=== PATIENT | female | born 1960 | race Caucasian/White ===

== ENCOUNTER 2016-12-09 10:24 | Emergency (ER) | payer BC ==
[~2016-12-09] VITALS: Ht 167.6 cm; Wt 66.4 kg
[2016-12-09] VITALS (9 sets, daily range): BP systolic 119–168; BP diastolic 74–93; PULSE 53–75; TEMP 36.6; O2SAT 94–100; Ht 167.6 cm; Wt 66.4 kg
[~2016-12-09 10:24] MED LIST: ASTN; ESTVR2 VAGRING; GLUC1CAP33 PO; OMEGCAP2 PO
[2016-12-09] MEDS ORDERED: CYAN10005 PO (10:53)
[2016-12-09] MEDS ORDERED: ASPI81TA28 PO (10:53)
[2016-12-09] MEDS ORDERED: CHOL2000 PO (10:53)
[2016-12-09] MEDS ORDERED: ACETAMINOPHEN 500 MG TAB PO STA (11:15)
--- NOTE | 2016-12-09 12:10 | DIAGNOSTIC IMAGING REPORT ---
RIGHT SHOULDER MIN 2 VIEWS ROUTINE CLINICAL HISTORY: Right upper extremity pain following fall. COMPARISON: None FINDINGS: Evaluation of the right shoulder is suboptimal given difficulty positioning. Alignment appears anatomic and no acute fracture is identified. There is moderate AC joint arthrosis. IMPRESSION: No acute fracture or dislocation of the right shoulder. Study mildly compromised due to difficulty positioning. Electronically signed by: Benjamin Hughes M.D. 12/09/2016 12:09 PM Dictated Date/Time: 12/09/2016 12:08 PM
--- NOTE | 2016-12-09 12:17 | DIAGNOSTIC IMAGING REPORT ---
RIGHT FOREARM 2 VIEWS ROUTINE, ELBOW 2 VIEWS, WRIST 2 VIEW, RIGHT HAND MIN 3 VIEWS ROUTINE CLINICAL HISTORY: Fall. Right arm pain. Right hand pain. Right wrist pain. COMPARISON STUDY: Right elbow 09/11/2014. FINDINGS: There is a comminuted fracture within the proximal metadiaphysis of the right ulna which demonstrates mild anterior angulation. The fracture may extend to the articular surface. There is posterior dislocation of the radius or relation to the humerus. There is mild posterior subluxation/dislocation of the ulna and relation to the humerus. There is an associated elbow effusion and mild soft tissue swelling. No fracture or dislocation within the right hand or right wrist. No radiopaque foreign bodies. IMPRESSION: 1. Comminuted fracture within the proximal metadiaphysis of the right ulna which may extend to the articular surface. There is also mild posterior subluxation/dislocation of the ulna in relation to the humerus. 2. Posterior dislocation of the proximal radius in relation to the ulna. 3. Elbow effusion. 4. No acute fracture or dislocation within the right wrist or hand. Electronically signed by: Tree Oreilly M.D. 12/09/2016 12:15 PM Dictated Date/Time: 12/09/2016 12:10 PM
[2016-12-09] MEDS ORDERED: SODIUM CHLORIDE 0.9% 1000ML 1,000 ML IV STA (12:52)
[2016-12-09] MEDS ORDERED: ONDANSETRON INJ 2 MG/ML 2 ML VIAL IV STA (12:52)
[2016-12-09] MEDS ORDERED: MoRPHine SULFATE 4 MG/ML 1 ML CARP\\VIAL IV STA ×2 (12:52→17:21)
[2016-12-09] MEDS ORDERED: LIDOCAINE HCL 1% 20 ML VIAL ONE (14:53)
[2016-12-09] MEDS ORDERED: PROPOFOL IV EMULSION 10 MG/ML 20 ML VIAL IV ONE (15:27)
[2016-12-09] MEDS ORDERED: KETAMINE HCL INJ 50 MG/ML 10 ML VIAL ONE (15:27)
--- NOTE | 2016-12-09 15:45 | EMERGENCY ROOM VISIT NOTE ---
ED Visit Note First contact with patient: 15:42 Conscious sedation note: Reason: Elbow fracture dislocation reduction. Total time: 21 minutes Medications used: 25 mg of propofol and 25 mg of ketamine. The patient was sedated using above medications with good results. The patient' s reduction was without difficulty or pain. She maintained good pulse ox and carbon dioxide levels as well as normal vital signs during the conscious sedation. Last oral intake was 8 hours ago.
--- NOTE | 2016-12-09 15:47 | EMERGENCY ROOM VISIT NOTE ---
Pre-Mod Sedation Assessment General Date of Moderate Sedation: Dec 09, 2016. Vital Signs: Vital Signs Past 12 Hours Date Time Temp Pulse Resp B/P (MAP) Pulse Ox O2 Delivery O2 Flow Rate FiO2 12/09/16 15:02 53 18 119/74 94 Room Air 12/09/16 14:31 55 15 145/75 97 12/09/16 13:46 52 14 132/72 12/09/16 13:06 54 16 126/73 100 Room Air 12/09/16 12:56 51 12/09/16 12:26 55 15 134/83 97 Room Air 12/09/16 10:27 36.6 59 20 125/71 96 Room Air Review Cardiovascular: regular rate, rhythm Abdomen: normal bowel sounds Lungs: chest non-tender Pre-Sedation Airway Assessment Oral Cavity: WNL Short Thick Neck: No Hx of Sleep Apnea: Yes Smoking Status: Never Smoker Mallampati Classification: Class I Procedure Planning Contraindications-for Mod Sed: None Notes The planned sedation has been discussed with the patient and consent obtained. I have identified the patient, determined the appropriateness of sedation and have assessed the patient immediately prior to the procedure. All medicine(s) and interventions are by my order.
--- NOTE | 2016-12-09 15:48 | EMERGENCY ROOM VISIT NOTE ---
Post-Moderate Sedation Plan General Date of Moderate Sedation Dec 09, 2016. Vital Signs: Vital Signs Past 12 Hours Date Time Temp Pulse Resp B/P (MAP) Pulse Ox O2 Delivery O2 Flow Rate FiO2 12/09/16 15:02 53 18 119/74 94 Room Air 12/09/16 14:31 55 15 145/75 97 12/09/16 13:46 52 14 132/72 12/09/16 13:06 54 16 126/73 100 Room Air 12/09/16 12:56 51 12/09/16 12:26 55 15 134/83 97 Room Air 12/09/16 10:27 36.6 59 20 125/71 96 Room Air Review - Discharge Plan Post Moderate Sedation Plan: On clinical assessment, the patient appears to have tolerated the conscious sedation without complications. Patient is recovering as anticipated. Patient will continue to be monitored by nursing and may be discharged when conscious sedation discharge criteria are met.
[2016-12-09] MEDS ORDERED: KETAMINE HCL INJ 50 MG/ML 10 ML VIAL IV PRN (15:55)
[2016-12-09] MEDS ORDERED: PROPOFOL IV EMULSION 10 MG/ML 20 ML VIAL IV PRN (16:00)
--- NOTE | 2016-12-09 16:05 | DIAGNOSTIC IMAGING REPORT ---
RIGHT ELBOW 2 VIEWS HISTORY: 56 years-old Female right elbow reduction Right COMPARISON: Right elbow radiographs the same day at 11:35 AM TECHNIQUE: Single post reduction lateral view of the right elbow FINDINGS: There has been interval casting and reduction of the previously noted angulated comminuted mildly displaced proximal ulnar fracture.. There is improved alignment status post reduction. The articular head of the radius now appears to be in anatomic position on this single view. There remains a 3.0 x 0.7 cm bone fragment volar to the proximal. Moderate joint effusion. Fine bony detail is obscured by cast. IMPRESSION: 1. Improved alignment of the comminuted proximal ulnar fracture status post reduction and casting. There remains a 3.0 x 0.7 cm bone fragment adjacent to the volar aspect of the proximal ulna. 2. Satisfactory alignment of the radial head in relation to the capitellum on this single view. The above report was generated using voice recognition software. It may contain grammatical, syntax or spelling errors. Electronically signed by: Sunny Vences M.D. 12/09/2016 4:04 PM Dictated Date/Time: 12/09/2016 4:02 PM
[2016-12-09] MEDS ORDERED: HYDR-5688 PO (16:25)
[2016-12-09] MEDS ORDERED: ONDA4TAB46 PO (16:25)
--- NOTE | 2016-12-09 16:45 | OPERATIVE REPORT ---
DATE OF OPERATION: 12/09/2016 PROCEDURE AND CONSULT NOTE CHIEF COMPLAINT: Right elbow pain and injury. Maye is a delightful young lady. She is 56 years of age. She suffered a fall on outstretched right upper extremity earlier today, the 09 of December. She suffered a [place] injury to her right elbow, essentially a fracture of the proximal ulna and a dislocation of the right radial head. On examination, she had some numbness and tingling, significant pain. No laceration. No breakage of skin. Neurologically intact. Mild swelling. X-rays demonstrated a [place] lesion of the right elbow, which is the comminuted fracture of metaphyseal area of the right ulna plus a subluxation and dislocation of the radial head. DISPOSITION: Includes, 1. A conscious sedation in the Emergency Room ____ by Dr. Rosas. 2. We performed a closed reduction with flexion, supination and slight traction. Placed her in a posterior splint for support. Ice, rest, and elevation. We will see her back in the office in approximately 4-5 days. [place] can be offered for pain. She should maintain her splint. Instructions and precautions provided. I attest to the content of the Intraoperative Record and any orders documented therein. Any exception s are noted below.
[2016-12-09] MEDS ORDERED: ONDANSETRON HOME PACK 4MG OD TAB PO ONE (17:00)
[2016-12-09] MEDS ORDERED: NORCO 5/325MG HOME PACK PO ONE (17:00)
--- NOTE | 2016-12-10 12:32 | EMERGENCY ROOM VISIT NOTE ---
ED Visit Note First contact with patient: 10:59 Chief Complaint: I fell and hurt my right arm. History of Present Illness: Ms. Amaya is a 56-year-old white female who is brought into the ED via ambulance complaining of right upper extremity pain. Patient reports less than an hour ago she was walking on the sidewalk, tripped and fell on her extended right arm. She reports she immediately had pain in the right elbow and proximal forearm. Since that time her pain has been constant. She describes her pain as a sharp and throbbing sensation. She rates her discomfort 4/10. Her pain is nonradiating. Her pain worsens with palpation, all attempts to flex or extend the elbow or supinate or pronate the forearm. She has not identified any alleviating factors related to the pain. Associated with her pain she reports since the fall happen she is also having pain over the clavicle area and the wrist and hand. She denies any arm weakness /numbness/tingling. She reports she previously had a fracture of the proximal radial head from a fall and had no complications. Additionally patient denies any lightheaded or dizziness before the fall, striking her head at the time of the fall, loss of consciousness at the time of the fall, signs of head injury since the fall, neck pain, back pain, chest pain , shortness of breath, abdominal pain, nausea/vomiting, left upper extremity pain, lower extremity pain.. Review of Systems: As noted above in history of present illness. All body systems were reviewed and found to be negative as noted above. Past Medical History: As previously noted. Current Medications: Medications Dose Route/Sig Max Daily Dose Days Date Category Dose Instructions Vitamin B-12 (Cyanocobalamin) Unknown Strength Tab Unknown Dose PO DAILY 12/09/16 Reported Vitamin D3 (Cholecalciferol) 2,000 Unit Cap 1 Cap PO DAILY 30 12/09/16 Reported Aspirin Ec (Aspirin) 81 Mg Tab 81 Mg PO DAILY 12/09/16 Reported Glucosamine & Chondroitin 500-400 mg (Glucosamine-Chondroitin) 1 Cap Cap 1 Cap PO DAILY 08/11/14 Reported Fish Oil ([place]-3 Fatty Acids) 1 Cap Cap 1 Cap PO DAILY 08/11/14 Reported Estring (Estradiol) 2 Mg Vagring 2 Mg VAGRING [id number] 08/11/14 Reported Astelin Nasal [place] (Azelastine Hcl) 200 Sprays/30 Ml [place] 1-2 Sprays NA BID 08/11/14 Reported Allergies to Medications: Oxycodone; nausea/vomiting. Social History: Patient is currently employed; she feels safe in her home environment; she denies tobacco use; she admits to social alcohol use. Physical Examination: Vital Signs: Date Time Temp Pulse Resp B/P (MAP) Pulse Ox O2 Delivery O2 Flow Rate FiO2 12/09/16 19:22 55 20 144/74 97 12/09/16 17:39 62 20 137/87 98 Room Air 12/09/16 17:00 60 161/79 96 Room Air 12/09/16 16:55 61 12/09/16 16:06 59 18 142/77 94 12/09/16 15:56 60 18 152/84 12/09/16 15:46 168/93 12/09/16 15:45 64 18 168/93 100 Nasal Cannula 3.5 12/09/16 15:41 75 18 163/93 12/09/16 15:40 75 18 163/93 100 Nasal Cannula 3.5 12/09/16 15:39 164/89 12/09/16 15:37 68 18 164/89 99 Nasal Cannula 3.5 12/09/16 15:36 73 18 140/80 12/09/16 15:35 18 100 Nasal Cannula 3.5 12/09/16 15:34 73 18 140/80 100 Nasal Cannula 3.5 12/09/16 15:02 53 18 119/74 94 Room Air 12/09/16 14:31 55 15 145/75 97 12/09/16 13:46 52 14 132/72 12/09/16 13:06 54 16 126/73 100 Room Air 12/09/16 12:56 51 12/09/16 12:26 55 15 134/83 97 Room Air 12/09/16 10:27 36.6 59 20 125/71 96 Room Air GENERAL: 56-year-old female in mild distress due to pain, nontoxic-appearing, afebrile and hemodynamically stable. NEUROLOGICAL: Awake, alert and oriented to person, place and time. Answering questions appropriately and following commands. Normal gait. Good hand eye coordination. Radial nerves II through XII grossly intact. Good short-term and long-term recall. Able to spell and count backwards. SKIN: Warm, dry and pink. Left Hand: 2 superficial abrasions noted over the posterior aspect of the left hand on the ring and little finger. No active bleeding. HEENT: Atraumatic and normocephalic. No raccoon's eyes or singh signs. No drainage from the ears of the nostril; no hemotympanum. No facial bony tenderness, swelling or ecchymosis. PERRLA. EOMI without nystagmus. No malocclusion. Airway patent. Speech normal. No lymphadenopathy. Trachea midline. No jugular venous distention. BACK: No tenderness over the bony cervical, thoracic and lumbar spine. Full range of motion of the cervical spine. No CVA tenderness. THORAX: Lungs sounds are clear to auscultation and equal bilaterally with symmetrical chest wall. No crepitus, tenderness, subcutaneous air or deformities noted. ABDOMEN: Flat, soft and nontender. Positive bowel sounds in all quadrants. No guarding, rigidity or organomegaly. RIGHT UPPER EXTREMITY: Mild tenderness over the distal clavicle and anterior humeral head without bony deformity or crepitus. No tenderness over the acromioclavicular joint. No tenderness over this scapula or underlying ribs. No tenderness throughout the proximal humerus. Moderate tenderness over the distal humerus, proximal and radius and ulna with moderate swelling, bony deformity and crepitus. Mild tenderness over the distal radius and ulna without bony deformity, bony crepitus, swelling or ecchymosis. Mild tenderness over the fourth and fifth metatarsals without bony deformity or crepitus. With her elbows stabilized she was able to flex and extend her wrist which did cause him small amount of discomfort and she was able to flex and extend all fingers. Throughout the hand the skin was warm and pink shoes able to distinguish light sensations through all dermatomes. LEFT UPPER EXTREMITY: No gross bony deformity. No tenderness throughout the shoulder, humerus, elbow, forearm or wrist. Distal neurovascular statuses are intact. LOWER EXTREMITY: No gross bony deformity. No shortening or malrotation. No tenderness over the hips, thighs, knees, lower legs, ankles or feet. Distal neurovascular statuses are intact and equal bilaterally. demand and with purpose. All distal neurovascular statuses are intact and equal bilaterally. No calf tenderness or cords. ED Course: Patient is assessed as noted above. Patient's medication list was reviewed. Patient was initially offered medication and refused; subsequently she reported she wanted something for pain but only something mild and she was given 1 g of acetaminophen by mouth. During subsequent evaluation she reports that she had an increase in pain and she was given 4 mg of morphine IV and 4 mg of Zofran IV. Patient was hydrated with normal saline. Right Shoulder X-Rays: Were read by myself and the radiologist showing no acute fractures or dislocations. Right Hand X-Rays: Were read by myself and the radiologist showing no acute fractures or dislocations. Right Forearm And Elbow X-Rays: Were read by myself and the radiologist showing a comminuted fracture within the proximal metadiaphysis of the right ulna which extends into the articular surface. There is also mild posterior subluxation/ dislocation of the ulna and relationship to the humerus. There is also posterior dislocation of the proximal radius and relationship to the ulna. A joint effusion is present within the elbow. Patient was assessed multiple times during her stay in the emergency department per Patient's case was consulted with Dr. Lock, orthopedic surgeon; he came to the ED for further evaluate the patient. Patient's case was reviewed with Dr. Rosas; conscious sedation was performed by Dr. Rosas and patient's fracture and dislocation was reduced by Dr. Lock ; please see their notes and orders for these procedures. Patient was educated about today's findings and instructed on her treatment plan ; she verbalizes understanding and agreement with this plan. Clinical Impression: Comminuted fracture of the proximal ulna with posterior subluxation/dislocation to the humerus. Posterior dislocation of the proximal radius and relationship to the ulna. Elbow joint effusion. Left hand abrasions. Status post fall. Disposition: Patient discharged home in stable condition accompanied by one of her neighbors; prior to departure she was reassessed and subjectively reported she was pain-free. Plan: Comfort measures were discussed with the patient including rest, splint and sling use, ice and a sliding pain scale of acetaminophen and [place]; she was given appropriate narcotic precautions and her name was checked in the state database and no red flags were noted. Patient is encouraged to follow-up with Dr. Lock for recheck next Tuesday. Patient is encouraged return ED for worsening/uncontrolled pain, uncontrolled swelling, arm/hand weakness/numbness/tingling or any new/concerning symptoms.
== END 2016-12-09 19:23 | disposition home or self-care (01) ==
LOC: EDBD 10:24 → C.EDB 10:26
DX: S52.001A Unspecified fracture of upper end of right ulna, initial encounter for closed fracture (principal); S53.024A Posterior dislocation of right radial head, initial encounter; S60.512A Abrasion of left hand, initial encounter; W01.0XXA Fall on same level from slipping, tripping and stumbling without subsequent striking against object, initial encounter; M25.421 Effusion, right elbow; Z79.82 Long term (current) use of aspirin; Z79.899 Other long term (current) drug therapy; Z88.5 Allergy status to narcotic agent

== ENCOUNTER → 2017-04-20 | Outpatient (CLI) | payer OTHER ==
[~2017-04-20] MED LIST changes: +ASPI81TA28 PO; +CHOL2000 PO; +CYAN10005 PO; +HYDR-5688 PO; +ONDA4TAB46 PO
== END | disposition home or self-care (01) ==
LOC: C.PAPS 14:01
PROVIDERS: ATTEND Obstetrics & Gynecology
DX: Z12.4 Encounter for screening for malignant neoplasm of cervix (principal); Z30.019 Encounter for initial prescription of contraceptives, unspecified; R87.619 Unspecified abnormal cytological findings in specimens from cervix uteri; Z78.0 Asymptomatic menopausal state; J31.0 Chronic rhinitis

== ENCOUNTER → 2017-06-14 | Outpatient (CLI) | payer OTHER ==
[~2017-06-14] MED LIST changes: -HYDR-5688 PO; -ONDA4TAB46 PO
--- NOTE | 2017-06-16 08:03 | MAMMOGRAPHY REPORT ---
BILATERAL DIGITAL SCREENING MAMMOGRAM TOMOSYNTHESIS WITH CAD: 06/14/2017 CLINICAL HISTORY: Routine screening. Patient has no complaints. TECHNIQUE: Breast tomosynthesis in addition to standard 2D mammography was performed. Current study was also evaluated with a Computer Aided Detection (CAD) system. COMPARISON: Comparison is made to exams dated: 07/11/2014 mammogram, 06/11/2013 mammogram, 12/05/2009 [facility], 10/17/2008, 09/26/2007, and 06/07/2006. BREAST COMPOSITION: The tissue of both breasts is heterogeneously dense, which may obscure small mas ses. FINDINGS: There are scattered, stable punctate calcifications in both breasts. No suspicious mass, architectural distortion or cluster of microcalcifications is seen. IMPRESSION: ACR BI-RADS CATEGORY 2: BENIGN There is no mammographic evidence of malignancy. A 1 year screening mammogram is recommended. The pa tient will receive written notification of the results. Approximately 10% of breast cancers are not detected with mammography. A negative mammographic report should not delay biopsy if a clinically suggestive mass is present. Rowan Méndez M.D. ay/:06/14/2017 15:29:55 Computer Help Desk Specialist: Vidya MCCORMACK(Jade)(Moe)([place]), [facility] letter sent: Normal 1/2 BI-RADS Code: ACR BI-RADS Category 2: Benign
== END | disposition home or self-care (01) ==
LOC: C.MAMM 14:23
PROVIDERS: ATTEND Obstetrics & Gynecology
DX: Z12.31 Encounter for screening mammogram for malignant neoplasm of breast (principal)